=== PATIENT | female | born 1985 ===

== ENCOUNTER 2019-03-03 09:59 | Emergency (ER) | payer BC, OTHER ==
[2019-03-03 10:27] VITALS: BP 101/68
[2019-03-03] MEDS ORDERED: Rabies VIRUS VACCINE (RabAvert)* 2.5 UNITS VIAL IM ONE (10:59)
[2019-03-03] MEDS ORDERED: Rabies Immune Globulin/PF 1ML* 1 ML/300 UNITS VIAL IM ONE (10:59)
--- NOTE | 2019-03-03 11:03 | UC ---
Skin Complaint HPI - HPI Summary HPI Summary: 33-year-old female who was sent here by the health department because she was walking last evening and something hit her in the neck. She does not know what it was however because the assumption is made that is was possibly a bat. She was sent here for rabies immunization series and Rabies Immuneglobulin. She states she thought there was a small scratch however nothing is visible on her anterior neck. - History of Current Complaint Chief Complaint: UCBiteInjury Time Seen by Provider: 03/03/19 10:47 Stated Complaint: RABIES SHOTS Hx Obtained From: Patient Hx Last Menstrual Period: 02/14/19 ?: No Onset/Duration: Sudden Onset, Other Onset Severity: Mild Current Severity: None - Happened last evening. Pain Intensity: 1 Location: Other - Anterior neck Aggravating Factor(s): Nothing Alleviating Factor(s): Nothing Associated Signs & Symptoms: Positive: Negative - Allergy/Home Medications Allergies/Adverse Reactions: Allergies Allergy/AdvReac Type Severity Reaction Status Date / Time Sulfa (Sulfonamide Allergy Rash Verified 03/03/19 10:21 Antibiotics) PMH/Surg Hx/FS Hx/Imm Hx Previously Healthy: Yes - Surgical History Surgical History: Yes Surgery Procedure, Year, and Place: gallbladder removal 2007 - Family History Known Family History: Positive: Non-Contributory - Social History Alcohol Use: Occasionally Substance Use Type: None Smoking Status (MU): Never Smoked Tobacco - Immunization History Most Recent Tetanus Shot: 2013 Review of Systems All Other Systems Reviewed And Are Negative: Yes Skin: Positive: Other - Patient states she felt there was a scratch on her neck last evening however today that is not visible. There was no bleeding involved. Is Patient Immunocompromised?: No Physical Exam Triage Information Reviewed: Yes Appearance: Well-Appearing, No Pain Distress, Well-Nourished Vital Signs: Initial Vital Signs Temp 99 F 03/03/19 10:22 Pulse 84 03/03/19 10:22 Resp 16 03/03/19 10:22 BP 101/68 03/03/19 10:22 Pulse Ox 99 03/03/19 10:22 Vital Signs Reviewed: Yes Psychological Exam: Normal Skin: Positive: Other - There is no evidence of the wound on the anterior neck. Course/Dx - Course Course Of Treatment: Patient has been comfortable here. She did receive rabies immunoglobulin 3.9 ML 's, and rabies immunization. She is to follow-up with the health department in 3 days from now 7 days and 14 days from now for further rabies immunization. There was no wound to infiltrate. - Diagnoses Provider Diagnosis: Need for rabies vaccination Discharge - Sign-Out/Discharge Documenting (check all that apply): Patient Departure All imaging exams completed and their final reports reviewed: No Studies - Discharge Plan Condition: Good Disposition: HOME Patient Education Materials: Rabies Vaccine (ED) Referrals: Shima Carr MD [Primary Care Provider] - Additional Instructions: Follow-up at the health department for your next rabies immunization on day 3 which will be Wednesday, March 06, again on March 10 and again on March 2019 - Billing Disposition and Condition Condition: GOOD Disposition: Home - Attestation Statements Provider Attestation: Per institutional requirements, I have reviewed the chart, however, I was not consulted specifically or made aware of this patient by the midlevel provider. I did not personally evaluate, interact with , or disposition this patient.
== END 2019-03-03 11:43 | disposition home or self-care (01) ==
LOC: UCEAST 09:59
DX: Z29.14 Encounter for prophylactic rabies immune globulin (principal); Z88.2 Allergy status to sulfonamides; Z90.49 Acquired absence of other specified parts of digestive tract
CPT/HCPCS: 90375; 90471; 90675; 96372; 99211; G0463